=== PATIENT | male | born 1990 | race Caucasian/White ===

== ENCOUNTER → 2019-12-08 14:27 | Outpatient (BNVA) | payer OTHER, SELFPAY | PROVIDERS: Visit Provider Nurse Practitioner Family | DX: Z20.828 Contact with and (suspected) exposure to other viral communicable diseases (principal) | CPT/HCPCS: 87635 ==

== ENCOUNTER 2020-04-26 19:46 | Emergency (ER) | payer BC, SELFPAY ==
[2020-04-26 19:59] VITALS: BP 136/82; PULSE 102; RESP 16; TEMP 36.9; O2SAT 97; BMI 26.4
--- NOTE | 2020-04-26 21:07 | USCV_ITS ---
Landen Veloz Age: 30 Gender: M : 1990 Exam Date: 04/26/2020 21:40 Ordering Phys: Mery Chairez Technologist: ASHLEE Exam Location: [facility] – [place] Indication: RT LEG PAIN AND EDEMA WOUND HISTORY: Ulcers. PROCEDURES: Venous duplex imaging was performed in only the right lower extremity. The following venous structures were evaluated: common femoral vein, profunda vein, proximal portion of the greater saphenous vein, superficial femoral vein, and the popliteal vein. In addition, the posterior tibial and peroneal trunk were evaluated. On the right side, the common femoral, superficial femoral, profunda femoral, popliteal, posterior tibial, greater saphenous veins and the peroneal trunk were identified and interrogated in the standard fashion. These veins were found to be easily compressible with spontaneous blood flow. No evidence of insufficiency or thrombus noted. FINDINGS: Normal 2-D Doppler and augmentation and compressibility throughout the lower extremity venous structures. Additional imaging through the proximal calf veins also reveals no thrombus. Limited evaluation of the greater saphenous vein is patent with no thrombus.. The veins were found to be easily compressible with spontaneous blood flow. Non pulsatile flow pattern. CONCLUSIONS No evidence of DVT in the above-mentioned identifiable veins. Dr Balaji Perez MD [facility] (Electronically Signed) Final Date: 26 April 2020 22:42 S
--- NOTE | 2020-04-26 21:08 | ED_ITS ---
HPI - Skin/Abscess/Foreign Bdy General: Chief complaint: Skin/Abscess/Foreign Body Stated complaint: infection in leg Time Seen by Provider: 04/26/20 20:51 Source: patient Mode of arrival: ambulatory Limitations: no limitations History of Present Illness: HPI narrative: Patient is a 30-year-old male who presents to ED today with a complaint of an abscess to his right lower extr emity. Patient tells me several days ago he accidentally struck the anterior portion of his right [place]. He states after that he subsequently began developing an abscess. He was seen by Fabiano Garcia on Wednesday and prescribed Bactrim-2 tabs BID. He tells me he has taken this medication daily but sometimes doesn't take the two pills like it is written for. He is not running fevers. Denies chills or body aches. Patient reports several staph abscesses over the past year. No history of MRSA. He has no other known medical conditions and currently takes no medications (apart from current Bactrim). MD complaint: abscess/boil Onset (ago): day(s) Tetanus up to date: yes Location: RLE Severity: moderate Pain Consistency: constant Relieving factors: none Exacerbating factors: none Associated symptoms: Reports no associated symptoms; Deny chills, fever(s) or nausea Treatments prior to arrival: antibiotic Review of Systems Const: Denies: fever(s), chills, body aches, fatigue or malaise Card: Denies: chest pain Resp: Denies: dyspnea GI: Denies: abdominal pain, nausea or vomiting Musc: Reports: extremity pain and extremity swelling Skin/Breast: Reports: new lesions and changes in skin color Neuro: Denies: numbness in extremities, sensory changes or difficulty walking PFS ED PFSH: Family History Father Diabetes Grandmother Diabetes Other Hypertension Social History (Updated 12/08/19 @ 12:26 by Alexandra Morton LPN) Smoking and tobacco status: former smoker Alcohol intake: never Physical Exam Const: COMMON NORMALS: no acute distress, average body habitus, patient oriented x3, no limitations, healthy appearing, alert and well nourished GENERAL APPEARANCE: cooperative ORIENTATION/CONSCIOUSNESS: Yes awake, Yes oriented to person, Yes oriented to place and Yes oriented to time Resp: COMMON NORMALS: normal respiratory effort and clear to auscultation bilaterally AUSCULTATION: clear to auscultation bilaterally Cardio: COMMON NORMALS: regular rhythm RATE: tachycardic RHYTHM: regular rhythm Extremity: NARRATIVE EXTREMITY EXAM: pt has quarter sized superficially fluctuate abscess to R anterior lower leg; he has diffuse cellulitis affecting anterior aspect of leg from knee down to ankle; diffuse lower leg swelling; DP/PT pulses intact; sensory intact Neuro: COMMON NORMALS: patient oriented x3 SENSORIUM/ORIENTATION: Yes alert, Yes oriented to person, Yes oriented to place and Yes oriented to time Skin: NARRATIVE SKIN EXAM: see extremity assessment Procedures Abscess I/D Site: lower extremity Side (if applicable): right Local Anesthetic: lidocaine 2% Amount of anesthesia used (mL): 3.0 Technique: incised with #11 blade Amount of fluid expressed (mL): 2.0 Packing used?: plain Complications: pain Course Vital Signs: Vital signs: Vital Signs Temperature 98.5 F 04/26/20 19:59 Pulse Rate 90 04/26/20 23:23 Respiratory Rate 18 04/26/20 23:23 Blood Pressure 124/71 04/26/20 23:23 Pulse Oximetry 98 04/26/20 23:23 MDM - Skin/Abscess/Foreign Bdy MDM Narrative: Medical decision making narrative: Patient is not tachycardic. He is afebrile. His white count is scantly elevated at 11.4. His lactate is normal. Patient is right on the 48-hour tho of antibiotic therapy. He admittedly has not been taking his antibiotics as they are directed which is for 2 tablets twice daily. Abscess was incised and packed. He was given a dose of IV vancomycin here. Recommend he start taking antibiotics as directed. He needs to return to the emergency department 48 hours if symptoms worsen. Lab Data: Labs: Lab Results 04/26/20 04/26/20 04/26/20 Range/Units 21:45 21:45 21:45 WBC 11.4 H (4.0-10.0) 10^3/ uL RBC 5.77 H (4.1-5.3) 10^6/u L Hgb 17.3 H (11.7-16.6) g/dL Hct 51.5 (42.0-52.0) % MCV 89.3 (80-94) fL MCH 30.0 (28.0-34.0) pg MCHC 33.6 (30.0-36.0) g/dL RDW 12.4 (12.1-15.1) % Plt Count 228 (130-400) 10^3/c mm MPV 10.5 H (7.4-10.4) fL Neut % (Auto) 72.9 % Lymph % (Auto) 17.6 % [place] % (Auto) 8.1 % Eos % (Auto) 0.7 % Baso % (Auto) 0.3 % Neut # (Auto) 8.33 H (1.8-7.7) 10^3/u L Lymph # (Auto) 2.0 (0.8-4.8) 10^3/u L [place] # (Auto) 0.9 (0.2-0.9) 10^3/u L Eos # (Auto) 0.1 (0.0-0.8) 10^3/u L Baso # (Auto) 0.0 (0.0-0.1) 10^3/u L Nucleated RBC % (a uto) 0 % Nucleated RBCs # 0.0 /100WBC Sodium 136 (136-145) mmol/L Potassium 3.9 (3.5-5.1) mmol/L Chloride 100 (98-107) mmol/L Carbon Dioxide 24 (22-29) mmol/L Anion Gap 15.9 (5-19) BUN 12 (6-20) mg/dL Creatinine 0.9 (0.7-1.2) mg/dL GFR Calculation 97.8 (90-130) mL/min Glucose 92 (65-115) mg/dL Calculated Osmolal ity 281 L (285-295) mOsm/k g Lactic Acid 0.7 (0.5-2.2) mmol/L Calcium 9.1 (8.5-10.5) mg/dL Total Bilirubin 1.2 (0.15-1.2) mg/dL AST 20 (0-40) U/L ALT 32 (0-41) U/L Alkaline Phosphata se 99 (40-130) IU/L C-Reactive Protein 58.1 H (0.0-4.9) mg/L Total Protein 7.3 (6.6-8.7) g/dL Albumin 4.4 (3.5-5.2) g/dL Globulin 2.9 (1.3-4.6) g/dL Imaging Data^: US R LE : My impression: Per Jose Daniel Campos planetarium technician?no DVT, diffuse lymphadenopathy, no drainable abscess Discharge Plan Discharge Patient Disposition: Home Clinical Impression: Cellulitis and abscess of right leg Condition: Stable Prescriptions: No Action No Known Home Medications RF: 0 Discharge Orders: Discharge ED (Routine); Ordered 04/26/20 Ordered By: Mery Chairez Patient Instructions: Abscess Incision and Drainage (ED), Abscess (ED), Skin Abscess - Antibiotics Activity Restrictions/Additional Instructions: Continue taking your antibiotics-make sure you are taking them as directed. You need to return to the emergency department 24 hours for worsening symptoms. If you begin to improve you may remove the packing on your own in 72 hours. Coding Level of Care Code ED [employer] Compliance Specialist for [employer] Fwd Exam Expanded Problem Focused
[2020-04-26] MEDS: sodium chloride 0.9% 1,000 ML 999 ML IV (21:48)
[2020-04-26] MEDS: vancomycin 1,000 MG in sodium chloride 0.9% 250 ML 250 MG IV (21:49)
[2020-04-26 21:50] LABS: Basophils % 0.3 %; Eosinophils # 0.1 10^3/uL (0.0-0.8); Eosinophils % 0.7 %; Hematocrit 51.5 % (42.0-52.0); Hemoglobin 17.3 g/dL (11.7-16.6); Lymphocytes % 17.6 %; Mean Corpuscular HGB Conc 33.6 g/dL (30.0-36.0); Mean Corpuscular Volume 89.3 fL (80-94); Mean Platelet Volume 10.5 fL (7.4-10.4); Monocytes # 0.9 10^3/uL (0.2-0.9); Monocytes % 8.1 %; Neutrophils # 8.33 10^3/uL (1.8-7.7); Neutrophils % 72.9 %; Nucleated Red Blood Cells % 0 %; Platelet Count 228 10^3/cmm (130-400); Red Blood Count 5.77 10^6/uL (4.1-5.3); Red Cell Distribution Width 12.4 % (12.1-15.1); White Blood Count 11.4 10^3/uL (4.0-10.0)
[2020-04-26 22:00] VITALS: PULSE 88; RESP 18; O2SAT 99
[2020-04-26 22:11] LABS: Alanine Aminotransferase 32 U/L (0-41); Albumin Level 4.4 g/dL (3.5-5.2); Alkaline Phosphatase 99 IU/L (40-130); Aspartate Amino Transferase 20 U/L (0-40); Blood Urea Nitrogen 12 mg/dL (6-20); C Reactive Protein 58.1 mg/L (0.0-4.9); Calcium 9.1 mg/dL (8.5-10.5); Carbon Dioxide 24 mmol/L (22-29); Chloride 100 mmol/L (98-107); Globulin 2.9 g/dL (1.3-4.6); Glomerular Filtration Rate 97.8 mL/min (90-130); Glucose 92 mg/dL (65-115); Osmolality Calculated 281 mOsm/kg (285-295); Sodium 136 mmol/L (136-145); Total Bilirubin 1.2 mg/dL (0.15-1.2); Total Protein 7.3 g/dL (6.6-8.7)
[2020-04-26 22:12] LABS: Lactic Sepsis W/Reflex 0.7 mmol/L (0.5-2.2)
[2020-04-26 22:22] LABS: Anion Gap 15.9 (5-19); Potassium 3.9 mmol/L (3.5-5.1)
[2020-04-26 23:23] VITALS: BP 124/71; PULSE 90; RESP 18; O2SAT 98
== END 2020-04-26 23:26 | disposition home or self-care (01) ==
PROVIDERS: Emergency Provider Physician Assistant
DX: L03.115 Cellulitis of right lower limb (principal); L02.415 Cutaneous abscess of right lower limb; Z87.891 Personal history of nicotine dependence
CPT/HCPCS: 10060; 80053; 83605; 85025; 86140; 87040; 87070; 87075; 87077; 87186; 87205; 93971; 96365; 99283; J3370; J7030; J7050

== ENCOUNTER 2024-05-30 13:27 | Oncology outpatient (recurring) (ONCR) | payer BC, SELFPAY ==
[2024-05-09 09:24] LABS: Basophils % 0.9 %; Eosinophils # 0.1 10^3/uL (0.0-0.8); Eosinophils % 2.1 %; Hematocrit 53.4 % (37-53); Lymphocytes # 1.6 10^3/uL (0.8-4.8); Lymphocytes % 34.9 %; Mean Corpuscular HGB Conc 34.3 g/dL (30-55); Mean Corpuscular Hemoglobin 29.7 pg (27-33); Mean Corpuscular Volume 86.7 fl (82-101); Mean Platelet Volume 10.5 fL (7.4-10.4); Monocytes # 0.4 10^3/uL (0.2-0.9); Monocytes % 9.1 %; Neutrophils # 2.48 10^3/uL (1.8-7.7); Neutrophils % 52.8 %; Nucleated Red Blood Cells % 0 %; Platelet Count 225 10^3/cmm (157-399); Red Blood Count 6.16 10^6/uL (3.85-5.65); Red Cell Distribution Width 12.4 % (12.1-15.1)
[2024-05-09 09:42] LABS: Alanine Aminotransferase 63 U/L (0-41); Albumin Level 4.6 g/dL (3.5-5.2); Alkaline Phosphatase 89 U/L (40-130); Aspartate Amino Transferase 30 U/L (0-40); Blood Urea Nitrogen 11 mg/dL (6-20); Calcium 8.8 mg/dL (8.5-10.5); Carbon Dioxide 24 mmol/L (22-29); Chloride 105 mmol/L (98-107); Creatinine Clr Calc Pharmacy 152.7327; Glomerular Filtration Rate 109.4 mL/min (90-130); Glucose 92 mg/dL (65-115); Osmolality Calculated 287 mOsm/kg (285-295); Sodium 139 mmol/L (136-145); Total Protein 6.6 g/dL (6.6-8.7)
[2024-05-09 09:43] LABS: Anion Gap 14.2 (5-19); Potassium 4.2 mmol/L (3.5-5.1)
[2024-05-09 10:07] LABS: Hepatitis A Antibody IgM Non-Reactive (Nonreactive); Hepatitis B Core AB, Total Non-Reactive (Nonreactive); Hepatitis B Surface AB 28.1 (11.5-1000); Hepatitis B Surface Antigen Non-Reactive (Nonreactive); Hepatitis C Virus Antibody Non-Reactive (Nonreactive)
[2024-05-12 10:10] LABS: Erythropoietin 6.4 mIU/mL (2.6-18.5)
[2024-05-16 10:19] LABS: CALR Exon 9 Mutation NOT DETECTED (NOT DETECTED); JAK2 Exon 12 Mutation NOT DETECTED (NOT DETECTED); JAK2 V617 Block Specimen ID blood; JAK2 V617 Clinical Indication polycythemia vera.; JAK2 V617 Mutation NOT DETECTED (NOT DETECTED); MPL Exon 10 Mutation NOT DETECTED (NOT DETECTED); Specimen Source ng
--- NOTE | 2024-05-24 07:45 | US_ITS ---
WS: [id number] Complete ABDOMINAL ULTRASOUND HISTORY: polycythemia vera COMPARISON: None available. Liver: 13.1 cm in length. Normal size liver and echogenicity. No bile duct dilatation or mass. Portal Vein: Normal hepatopetal flow with monophasic waveform. Gallbladder: Normally distended gallbladder with no stones or wall thickening. CBD: 0.3 cm Pancreas: Normal size and echogenicity. Right kidney: 10.5 cm x 5.6 x 5.0 cm. Cortex:1.9 cm. Normal size and echogenicity. No hydronephrosis or mass. Left kidney: 11.6 cm x 5.6 cm x 5.5 cm. Cortex: 1.9 cm. Normal size and echogenicity. No hydronephrosis or mass. Spleen: 12.9 cm. Normal size and echogenicity. Aorta and IVC: Unremarkable abdominal aorta and IVC. US/US abdomen complete* [id number] Impression: Normal complete abdomen ultrasound.
== END 2024-06-07 23:59 | disposition home or self-care (01) ==
PROVIDERS: Visit Provider Internal Medicine Medical Oncology
DX: Z53.9 Procedure and treatment not carried out, unspecified reason (principal)
CPT/HCPCS: 36415; 76700; 80053; 81219; 81270; 81279; 81339; 82668; 85025; 86705; 86706; 86709; 86803; 87340

== ENCOUNTER 2024-06-13 20:00 | Outpatient (CLI) | payer BC, SELFPAY | END 2024-06-13 20:01 | disposition home or self-care (01) | LOC: SLEEP 22:41 | PROVIDERS: Visit Provider Internal Medicine Medical Oncology | DX: D45 Polycythemia vera (principal) | CPT/HCPCS: 95810 ==